=== PATIENT | female | born 1990 | race Two or more races ===

== ENCOUNTER 2024-08-23 15:36 | Emergency (ER) | payer OTHER ==
[~2024-08-23] VITALS: Ht 165.1 cm; Wt 86.2 kg
[2024-08-23] MEDS ORDERED: FAMOtidine 10 MG/ML (4ML VIAL) IV PUSH ONE (16:45)
[2024-08-23] MEDS ORDERED: HYOSCYAMINE SULFATE 0.125 MG TAB.SUBL SL ONE (16:45)
[2024-08-23] MEDS ORDERED: HYOSCYAMINE SULFATE 0.125 MG TAB.SUBL ONE (16:54)
[2024-08-23] MEDS ORDERED: FAMOTIDINE/PF 20 MG/2 ML VIAL ONE (16:54)
[2024-08-23 17:24] LABS: HEMATOCRIT 38.1 % (36.0-45.00); HEMOGLOBIN 12.8 g/dL (12.0-15.00); MEAN CORPUSCULAR HEMOGLOBIN 27.6 pg (27.00-32.0); MEAN CORPUSCULAR HGB CONC 33.7 g/dl (32.0-36.0); PLATELET COUNT 303 K/uL (150-450); RED BLOOD COUNT 4.64 M/uL (4.00-6.00); RED CELL DISTRIBUTION WIDTH 13.9 % (11.5-14.5)
[2024-08-23] MEDS ORDERED: GAS RELIEF125 MG PO (17:52)
[2024-08-23] MEDS ORDERED: PROTONIX40 MG PO (17:52)
== END 2024-08-23 17:58 | disposition home or self-care (01) ==
LOC: ER 15:38
PROVIDERS: General Practice
DX: R53.81 Other malaise (principal); J00 Acute nasopharyngitis [common cold]; Z20.822 Contact with and (suspected) exposure to COVID-19